=== PATIENT | female | born 1995 ===

== ENCOUNTER 2017-04-18 10:20 | Observation (INO) | payer MEDICAID ==
[2017-04-18] MEDS ORDERED: Sodium Chloride 0.9% 1,000 ML IV STA (11:42)
[2017-04-18] MEDS ORDERED: Sodium Chloride 0.9% 1,000 ML IV SCH (11:45)
--- NOTE | 2017-04-18 12:46 | CP.PCM.HP ---
History of Present Illness - History of Present Illness History of Present Illness: Chief complaint abdominal pain HPI This is a 21-year-old female who is status post exploratory laparoscopy for ovarian cyst 5 days ago. Patient is found to have hydronephrosis and is requiring stent placement by Dr. Burrows. Patient has no other past medical history, and is medically stable for procedure today, METS greater than 4. hemodynamically stable. Review systems per HPI all of systems reviewed and negative by me Past medical and surgical history status post exploratory laparoscopy for large ovarian cyst Family history MD, diabetes mellitus, cancer No home medications No known drug allergies Vitals reviewed Physical exam: Constitutional- cooperative, awake, alert. Head- NCAT, PERRL Eye- PERRL, normal accommodation ENT- normal exam, MMM. Neck- normal inspection, supple, no JVD Respiratory- CTAB, no wheezes rales rhonchi Cardiovascular- RRR, +S1, +S2 no MRG GI/Abdominal- normal bowel sounds, soft, no mass, no hsm Skin- warm, dry Extremities Exam- normal capillary refill, normal inspection Neurological Exam- alert, stable gait Psych- normal mood, normal affect Labs reviewed on discharge yesterday Assessment and plan 21-year-old female who is status post exploratory laparoscopy for ovarian cyst 5 days ago. Patient is found to have hydronephrosis and is requiring stent placement by Dr. Burrows. Patient has no other past medical history, and is medically stable for procedure today, METS greater than 4. hemodynamically stable. Left sided Hydronephrosis For stent placement by Dr. Burrows Pain control Nothing by mouth for procedure Present on Admission - Present on Admission Any Indicators Present on Admission: No Past Patient History - Past Medical History & Family History Past Medical History?: Yes - Past Social History Smoking Status: Never Smoked - CARDIAC Hx Cardiac Disorders: No - PULMONARY Hx Respiratory Disorders: No - NEUROLOGICAL Hx Neurological Disorder: No - HEENT Hx HEENT Problems: No - RENAL Hx Chronic Kidney Disease: No - ENDOCRINE/METABOLIC Hx Endocrine Disorders: No - HEMATOLOGICAL/ONCOLOGICAL Hx Blood Disorders: Yes Hx Anemia: Yes - INTEGUMENTARY Hx Dermatological Problems: No - MUSCULOSKELETAL/RHEUMATOLOGICAL Hx Musculoskeletal Disorders: No - GASTROINTESTINAL Hx Gastrointestinal Disorders: No - GENITOURINARY/GYNECOLOGICAL Hx Genitourinary Disorders: No - PSYCHIATRIC Hx Psychophysiologic Disorder: No Hx Substance Use: No - SURGICAL HISTORY Hx Surgeries: Yes Other/Comment: cyst removal-04/13/17 - ANESTHESIA Hx Anesthesia: Yes Hx Anesthesia Reactions: No Hx Malignant Hyperthermia: No Meds Allergies/Adverse Reactions: Allergies Allergy/AdvReac Type Severity Reaction Status Date / Time No Known Allergies Allergy Verified 04/18/17 11:14 Results - Vital Signs Recent Vital Signs: Last Vital Signs Temp 97.8 F 04/18/17 10:38 Pulse 70 04/18/17 10:38 Resp 18 04/18/17 10:38 BP 122/72 04/18/17 10:38 Pulse Ox 100 04/18/17 10:38
--- NOTE | 2017-04-18 12:50 | ED PDOC ---
HPI: General Adult Time Seen by Provider: 04/18/17 10:41 Chief Complaint (Nursing): Female Genitourinary History Per: Patient Additional Complaint(s): Pt. states she was asked by Dr. Burrows to come to ED for an operation due to having "fluid in her L kidney." States on 04/13/2017 she had an L adnexal cyst removal by Dr. Guzman here in [facility]. Reports that after the procedure she continued to have pain but was found to be unrelated to the surgery and had a CT done showing the fluid in her kidney. Reports her incision site feels better. Denies weakness, N/V/D, fever. Last BM was today and was normal. Past Medical History Reviewed: Historical Data, Nursing Documentation, Vital Signs Vital Signs: Last Vital Signs Temp 97.8 F 04/18/17 12:46 Pulse 70 04/18/17 12:46 Resp 18 04/18/17 12:46 BP 122/72 04/18/17 12:46 Pulse Ox 100 04/18/17 12:50 - Medical History PMH: Anemia Denies: Chronic Kidney Disease - Family History Family History: States: No Known Family Hx - Home Medications Home Medications: Ambulatory Orders Medication Instructions Recorded Docusate [Colace] 100 mg PO BID PRN 04/18/17 Ferrous Sulfate [Feosol] 325 mg PO DAILY 04/18/17 Ibuprofen [Motrin Tab] 600 mg PO Q8H PRN 04/18/17 oxyCODONE/Acetaminophen [Percocet 1 tab PO Q4H PRN 04/18/17 5/325 mg Tab] - Allergies Allergies/Adverse Reactions: Allergies Allergy/AdvReac Type Severity Reaction Status Date / Time No Known Allergies Allergy Verified 04/18/17 11:14 Review of Systems ROS Statement: Except As Marked, All Systems Reviewed And Found Negative Physical Exam - Reviewed Nursing Documentation Reviewed: Yes Vital Signs Reviewed: Yes - Physical Exam Appears: Positive for: Well, Non-toxic, No Acute Distress Head Exam: Positive for: ATRAUMATIC, NORMAL INSPECTION, NORMOCEPHALIC Skin: Positive for: Normal Color, Warm. Negative for: Rash Eye Exam: Positive for: EOMI, Normal appearance, PERRL Neck: Positive for: Normal, Painless ROM Cardiovascular/Chest: Positive for: Regular Rate, Rhythm Respiratory: Positive for: CNT, Normal Breath Sounds Gastrointestinal/Abdominal: Positive for: Normal Exam, Soft, Other (healing sutured wound on suprapubic area without discharge, erythema, swelling). Negative for: Tenderness Back: Positive for: Normal Inspection. Negative for: L CVA Tenderness, R CVA Tenderness Extremity: Positive for: Normal ROM Neurologic/Psych: Positive for: Alert, Oriented. Negative for: Aphasia, Facial Droop - ECG O2 Sat by Pulse Oximetry: 100 - Progress ED Course And Treament: Dr. Burrows called ED and spoke with Dr. Xie who requests that pt. be admitted and he will take patient to OR at 1500 today. Also states no blood work or imaging is to be done. Pt.'s PMD is Dr. Siddiqi who admits to hospitalist. Dr. Alicea in ED and evaluated pt. Arrangements made for admission. Disposition - Clinical Impression Clinical Impression: Hydronephrosis - Patient ED Disposition Is Patient to be Admitted: No - Disposition Disposition: Routine/Home Disposition Time: 10:49 Condition: STABLE
[2017-04-18 13:45] VITALS: BMI 21.9
[2017-04-18] MEDS ORDERED: Lactated Ringer's 1,000 ML IV ONE ×2 (14:13→16:43)
[2017-04-18] MEDS ORDERED: Propofol 10 mg/ml Inj (20 ML) ONE (15:11)
[2017-04-18] MEDS ORDERED: Midazolam 2 MG/2 ML VIAL ONE (15:11)
[2017-04-18] MEDS ORDERED: Lidocaine 1% 5ml Abboject IV ONE (15:11)
[2017-04-18] MEDS ORDERED: Lidocaine 2% Jelly (5 ml) TOP ONE (15:11)
[2017-04-18] MEDS ORDERED: Lidocaine 2% Jelly (Uro-Jet) ONE (15:50)
[2017-04-18] MEDS ORDERED: cefTRIAXone (Rocephin) 1 gm Inj ONE (15:50)
[2017-04-18] MEDS ORDERED: Iohexol 240 200 ML ONE (15:50)
[2017-04-18] MEDS ORDERED: Sodium Chloride 0.9% 1,000 ML IV ONE (16:43)
[2017-04-18] MEDS ORDERED: HYDROmorphone 0.5 mg/0.5 ml ISec IVP PRN (16:45)
[2017-04-18] MEDS ORDERED: Lactated Ringer's 1,000 ML IV SCH (16:45)
[2017-04-19 01:55] VITALS: RESP 18
[2017-04-19 06:29] VITALS: O2SAT 100
[2017-04-19 07:46] VITALS: BP 116/75; PULSE 72; TEMP 98.5
--- NOTE | 2017-04-19 08:45 | CP.PCM.DIS ---
Provider - Provider Date of Admission: 04/18/17 10:49 Attending physician: Carmen Alicea DO Primary care physician: Dr. Thomas Cannon Consults: urology consult IR consult Time Spent in preparation of Discharge (in minutes): 15 Hospital Course - Lab Results Lab Results: Most Recent Lab Values Urine HCG, Qual Negative (NEGATIVE) 04/18/17 14:50 - Hospital Course Hospital Course: 21-year-old female who is status post exploratory laparoscopy for ovarian cyst 5 days ago, found to have moderate to severe left hydronephrosis . Urology was consulted and tried to place stent but was bot able to pass it through. IR was consulted for nephrostomy placement.patient scheduled to come tomorrow as outpatient @ 9 AM via SDS for left nephrostomy placement She is hemopdynamically stable, afebrile Will d/c patient home Continue iron supplements NPO past midnight for nephrostomy in AM Tylenol and motrin PRN for pain Follow up on with Dr Cannon DX Left moderate to severe hydronephrosis Anemia s/p laparascopy for left ovarian cyst Discharge Exam - Head Exam Head Exam: ATRAUMATIC, NORMAL INSPECTION, NORMOCEPHALIC - Eye Exam Eye Exam: EOMI, PERRL Pupil Exam: NORMAL ACCOMODATION - ENT Exam ENT Exam: Mucous Membranes Moist, Normal Exam - Neck Exam Neck exam: Full Rom, Normal Inspection - Respiratory Exam Respiratory Exam: Clear to PA & Lateral, NORMAL BREATHING PATTERN. absent: Rhonchi, Wheezes, Respiratory Distress - Cardiovascular Exam Cardiovascular Exam: REGULAR RHYTHM, RRR, +S1, +S2. absent: JVD - GI/Abdominal Exam GI & Abdominal Exam: Normal Bowel Sounds, Soft. absent: Distended, Guarding, Rebound, Tenderness - Rectal Exam Rectal Exam: Deferred - Extremities Exam Extremities exam: normal capillary refill, normal inspection, pedal pulses present - Back Exam Back exam: NORMAL INSPECTION - Neurological Exam Neurological exam: Alert, CN II-XII Intact, Oriented x3 - Psychiatric Exam Psychiatric exam: Normal Affect, Normal Mood - Skin Skin Exam: Dry, Pallor, Warm Discharge Plan - Follow Up Plan Condition: STABLE Disposition: HOME/ ROUTINE Patient education suggested?: Yes Instructions: Patient Safety in the Hospital (GEN), Nephrostomy Tube Insertion (DC), Urethral Stent Placement (DC), How To Wash Your Hands (GEN), Fall Prevention (DC) Referrals: Davis Guzman MD [Staff Provider] - Kun Burrows MD [Medical Doctor] -
--- NOTE | 2017-04-20 08:35 | OP ---
PROCEDURE DATE: 04/18/2017 PREOPERATIVE DIAGNOSIS: Severe left hydroureteronephrosis. POSTOPERATIVE DIAGNOSIS: Severe left hydroureteronephrosis. PROCEDURE PERFORMED: Cystoscopy with retrograde pyelography, attempted cannulization of the ureter on that side. DESCRIPTION OF PROCEDURE: The patient was placed in the operating table on dorsal lithotomy position. The area of the groin was draped and prepped in the sterile manner. Using a #21 cystoscope, I entered into the bladder atraumatically, immediately identified the left ureteral orifice and at this time, I inserted a 6-[place] cone tip catheter and began to inject contrast to establish the outline of the ureter. For the most distal part approximately the distal 5 to 6 cm, the ureter appeared to be of normal caliber. Proximal to that it was totally dilated. I inserted 10 mL followed by a second dose of 10 mL of contrast material and it would not go beyond the area just above the iliac crest on the left side. I could not get any contrast to go proximal to the area of the kidney itself. That being done then I decided to try with a sensor wire to see if I can negotiate some of the curves and perhaps find the way through this area and after multiple attempts with the sensor wire, I was not able to get any pass to the area of the ureteral swelling in the iliac crest area on the left. After multiple attempts then all instrumentation was removed. The patient was then taken from the operating room in good condition. Kun Burrows MD
--- NOTE | 2017-04-20 12:18 | RAD ---
PROCEDURE: Intraoperative Fluoroscopy. HISTORY: CYSTOSCOPY FINDINGS: Fluoroscopic assistance was provided for cystoscopy. Please refer to
== END 2017-04-19 11:25 | disposition home or self-care (01) ==
LOC: H.ER 10:20 → INTOOBSV 10:49 → H.ERHOLD 10:49 → H.PEDS 13:22
PROVIDERS: ADMIT Student in an Organized Health Care Education/Training Program; ATTEND Student in an Organized Health Care Education/Training Program
DX: N13.39 Other hydronephrosis (principal); D64.9 Anemia, unspecified; Z98.890 Other specified postprocedural states
CPT/HCPCS: 36415; 52005; 76000; 84703; 85610; 99284; G0378; J0696; J2250; J2704; J2765; J3010; J7040; J7120; Q9966